=== PATIENT | female | born 1985 | race Caucasian/White ===

== ENCOUNTER → 2019-12-27 | Emergency (ER) | payer MEDICAID ==
--- NOTE | 2019-12-27 16:25 | NUR ---
CALLED FOR TRIAGE X 2 - NOT IN WAITING ROOM - WAS SEEN LEAVING AFTER MALE FRIEND SHE CAME WITH WAS DISCHARGED FROM ER.
== END | disposition left against medical advice (07) ==
LOC: ER 16:16
DX: Z75.3 Unavailability and inaccessibility of health-care facilities (principal)

== ENCOUNTER 2020-01-11 07:49 | Emergency (ER) | payer MEDICAID ==
[~2020-01-11] VITALS: Ht 162.6 cm; Wt 68.0 kg
[2020-01-11 08:23] LABS: *BILIRUBIN,URIN NEGATIVE (NEGATIVE); *BLOOD, URINE NEGATIVE (NEGATIVE); *CLARITY,URINE CLOUDY (CLEAR); *COLOR,URINE YELLOW (YELLOW); *KETONES,URINE NEGATIVE (NEGATIVE); *URINE HCG, QUAL NEG (NEGATIVE); LEUKOCYTE ESTERASE ,URINE NEGATIVE (NEGATIVE); NITRITE, URINE NEGATIVE (NEGATIVE); UGLUCOSE NEGATIVE (NEGATIVE)
--- NOTE | 2020-01-11 09:33 | NUR ---
chaperoned vaginal us. pt tolerated well.
[2020-01-11] MEDS ORDERED: LIDOCAINE HCL 1% 20 ML VIAL ONE (09:46)
[2020-01-11] MEDS ORDERED: CEFTRIAXONE 500 MG VIAL ONE (09:46)
[2020-01-11] MEDS: CEFTRIAXONE 500 MG VIAL IM ONE (09:49)
--- NOTE | 2020-01-11 09:49 | NUR ---
Patient discharged to home in stable condition. Written and verbal after care instructions given. Patient verbalizes understanding of instructions. Stressed follow up or return to ER for worsening s/s.pt said have had rocephin shot before.
[2020-01-11 14:40] LABS: BACTERIA,URINE FEW /HPF (NONE SEEN); MUCUS,URINE FEW /LPF (0-FEW); SQUAMOUS EPITHELIAL CELL,UR MANY /HPF (NONE SEEN)
== END 2020-01-11 09:50 | disposition home or self-care (01) ==
LOC: ER 07:49
DX: N73.9 Female pelvic inflammatory disease, unspecified (principal)
CPT/HCPCS: 76856; 81001; 84703; 96372; 99284; J0696; J3490; A4663

== ENCOUNTER 2020-02-17 10:00 | Emergency (ER) | payer MEDICAID, OTHER ==
[~2020-02-17] VITALS: Ht 162.6 cm; Wt 68.0 kg
--- NOTE | 2020-02-17 11:02 | NUR ---
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
[2020-02-17 11:10] LABS: BASOPHILS % (AUTO) 0.5 % (0.0-2.0); EOSINOPHILS # (AUTO) 0.2 K/uL (0.0-0.7); EOSINOPHILS % (AUTO) 2.8 % (0.0-7.0); HEMOGLOBIN 13.4 g/dL (10.9-14.3); LYMPHOCYTES # (AUTO) 1.4 K/uL (20.0-40.0); LYMPHOCYTES % (AUTO) 22.1 % (20.5-51.5); MEAN CORPUSCULAR HEMOGLOBIN 29.2 uug (24.7-32.8); MEAN CORPUSCULAR HGB CONC 34 g/dL (32.3-35.6); MEAN CORPUSCULAR VOLUME 84.7 fL (75.5-95.3); MONOCYTES # (AUTO) 0.5 K/uL (2.0-10.0); MONOCYTES % (AUTO) 8.2 % (0.0-11.0); NEUTROPHILS # (AUTO) 4.3 K/uL (1.8-8.9); NEUTROPHILS % (AUTO) 66.4 % (38.5-71.5); PLATELET COUNT (AUTO) 302 K/uL (179-408); WHITE BLOOD COUNT (AUTO) 6.4 K/uL (3.8-11.8)
[2020-02-17 11:19] LABS: CARBON DIOXIDE 29 mmol/L (21-32); CHLORIDE 104 mmol/L (98-107); CREATININE 0.5 mg/dL (0.6-1.3); GLUCOSE 101 mg/dL (74-106); POTASSIUM 4.6 mmol/L (3.5-5.1); UREA NITROGEN, BLOOD 8 mg/dL (7-18)
[2020-02-17 11:26] LABS: *URINE HCG, QUAL NEGATIVE (NEGATIVE)
[2020-02-17 11:39] LABS: ALANINE AMINOTRANSFERASE 14 U/L (14-59); ALKALINE PHOSPHATASE 72 U/L (50-136); ASPARTATE AMINOTRANSFERASE 33 U/L (15-37); BILIRUBIN,DIRECT < 0.1 mg/dL (0.0-0.2); BILIRUBIN,TOTAL 0.5 mg/dL (0.2-1.0); TOTAL PROTEIN, SERUM 7.4 g/dL (6.4-8.2)
[2020-02-17] MEDS ORDERED: IOHEXOL 300MG/ML 100 ML INFUS..BTL ONE (11:41)
[2020-02-17] MEDS ORDERED: SWABABLE VALVE TRANSFER SET EA MC ONE (11:41)
[2020-02-17] MEDS ORDERED: IV NORMAL SALINE 250 ML IV ONE (11:41)
--- NOTE | 2020-02-17 11:54 | NUR ---
Patient does not wish to proceed with medical care recommended by Dr. Berg. Patient was given information related to possible complications, up to and including , which could occur as a result of leaving the hospital at this time. Patient verbalized understanding of risks involved due to leaving against medical advice. Patient has signed AMA form. Written and verbal after care instructions given to patient. Patient verbalized understanding & compliance of instructions. Stressed follow up with dentist or return to ER for worsening s/s.
[2020-02-17] MEDS ORDERED: LIDOCAINE HCL 2% 20 ML VIAL IJ ONE (16:30)
== END 2020-02-17 11:54 | disposition left against medical advice (07) ==
LOC: ER 10:00
DX: R22.0 Localized swelling, mass and lump, head (principal); K05.10 Chronic gingivitis, plaque induced; F17.210 Nicotine dependence, cigarettes, uncomplicated; R27.8 Other lack of coordination; Z86.718 Personal history of other venous thrombosis and embolism; Z87.42 Personal history of other diseases of the female genital tract
CPT/HCPCS: 36415; 36556; 83605; 84703; 85025; 85730; 87040; A4663; J7050; Q9967